=== PATIENT | male | born 1955 | race Caucasian/White ===

== ENCOUNTER 2024-06-21 08:28 | Emergency (ER) | payer BC, OTHER ==
--- NOTE | 2024-06-21 09:08 | RAD REPORT ---
EXAM: CT brain without contrast HISTORY: Left numbness COMPARISON: None TECHNIQUE: Multiple contiguous axial images were obtained and a CT of the brain without contrast. Sagittal and coronal reformats were performed. Automated exposure control, adjustment of the mA and/or kV according to patient size, and/or itera tive reconstruction. Unless otherwise specified, incidental findings do not require dedicated imaging follow-u FINDINGS: An intracranial bleed is not seen Ventricles are normal caliber No extra-axial fluid collection noted No significant hypodensity within the brain No fluid within the visualized sinuses or mastoids noted. IMPRESSION: No acute intracranial abnormality noted. If the patient's symptoms persist MRI of the brain would be recommended. from the emergency room was notified at 8:42 AM June 21, 2024
--- NOTE | 2024-06-21 09:12 | RAD REPORT ---
Procedure: Chest Single View HISTORY: Cough COMPARISON: none FINDINGS: The lungs appear clear of acute infiltrate. No significant pleural effusion noted. The heart is mildly enlarged. IMPRESSION: No acute abnormality is displayed.
[2024-06-21 09:14] LABS: Absolute Eosinophils 0.2 K/uL (0-0.5); Absolute Lymphocytes (CBC) 0.9 K/uL (0.7-4.9); Absolute Monocytes 0.6 K/uL (0.1-1.3); Absolute Neutrophil 6.5 K/uL (1.8-8.0); Basophils % 0.4 % (0-1.3); Eosinophils % 2.5 % (0-4.4); Hematocrit 44.9 % (39.6-49.0); Hemoglobin 14.7 g/dL (13.6-17.9); Lymphocytes % 11.2 % (15.3-44.8); MCH 27.6 pg (27.0-35.0); MCHC 32.7 g/dL (32.0-36.0); MCV 84.3 fL (80-100); MPV 8.5 fL (7.6-11.3); Monocytes % 7.6 % (3.3-12.3); Neutrophils % 78.3 % (41.7-73.7); Nucleated Red Blood Cells % 0.1 % (0-0); Platelets 174 thou/uL (152-406); RBC Red Blood Cell Count 5.33 M/uL (4.33-5.43); Red Cell Distribution Width 14.8 % (12.1-15.2)
[2024-06-21] MEDS ORDERED: ASPIRIN 81 MG CHEWABLE TABLET ONE (09:15)
--- NOTE | 2024-06-21 09:15 | RAD REPORT ---
EXAMINATION: Neck Angio CLINICAL INDICATION: Left numbness TECHNIQUE: Axial CT images were obtained from the aortic arch to the skull base after intravenous adm inistration of 100 cc Isovue-370 utilizing angiographic protocol. Multiplanar reformats, as well as 3D post-processing (maximum intensity projection images, volume rendered images and/or shaded surface rendered images) were generated and reviewed. One or more of the following dose reduction techniques were used: Automated exposure control, adjustment of the mA and/or kV according to patient size, and/or iterative reconstruction. Unless otherwise specified, incidental findings do not require dedicated imaging follow-up. COMPARISON: No prior exam. FINDINGS: The visualized aortic arch and great vessels do not demonstrate a significant abnormality Mild plaque within the common carotid, internal carotid and external carotid arteries bilaterally. Vertebral arteries unremarkable No significant stenosis noted. A dissection is not seen. Methods for NASCET criteria: Mild stenosis, 0% to 49%; Moderate stenosis 50% to 69%; Severe stenosis, 70% to 99% IMPRESSION: No acute vascular abnormality displayed
[2024-06-21] MEDS ORDERED: FAMOTIDINE 20 MG/2 ML VIAL IV ONE (09:16)
[2024-06-21] MEDS ORDERED: FOLIC ACID 5 MG/ML VIAL ONE (09:17)
[2024-06-21] MEDS ORDERED: NA CHLORIDE 0.9% 1,000 ML ONE (09:17)
--- NOTE | 2024-06-21 09:18 | RAD REPORT ---
EXAMINATION: CTA HEAD CLINICAL INDICATION: Left numbness TECHNIQUE: Axial CT images were obtained through the head after 100 cc Isovue-370 intravenous contras t utilizing angiographic protocol with 3D post-processing (maximum intensity projection images, volume rendered images and/or shaded surface rendered images). One or more of the following dose red uction techniques were used: Automated exposure control, adjustment of the mA and/or kV according to patient size, and/or iterative reconstruction. Unless otherwise specified, incidental findings do not require dedicated imaging follow-up. COMPARISON: None FINDINGS: Distal internal carotid, basilar, anterior cerebral, middle cerebral and posterior cerebral arteries do not demonstrate a significant stenosis An aneurysm not noted. No large vessel occlusion IMPRESSION: No acute vascular abnormality displayed
--- NOTE | 2024-06-21 09:31 | ER ---
Nurse's Notes [facility] Name: Brielle Ybarra Age: 68 yrs Sex: Male : 1955 Arrival Date: 06/21/2024 Time: 08:28 Bed 16 Private MD: Diagnosis: Cerebral infarction, unspecified-LEFT SIDED WEAKNESS, 21 HOURS AGO ONSET;Essential (primary) hypertension Presentation: 06/21 08:28 Chief complaint: EMS states: left arm weakness and numbness that progressed to his left kc6 leg started yesterday at 1230. pt reports having a sudden onset migraine at work and then his symptoms began. pt also reports multiple falls after symptoms onset. denies LOC. 08:28 Coronavirus screen: At this time, the client does not indicate any symptoms associated kc6 with coronavirus-19. Ebola Screen: No symptoms or risks identified at this time. Initial Sepsis Screen: Does the patient meet any 2 criteria? No. Patient's initial sepsis screen is negative. Does the patient have a suspected source of infection? No. Patient's initial sepsis screen is negative. Risk Assessment: Do you want to hurt yourself or someone else? Patient reports no desire to harm self or others. Onset of symptoms was June 20, 2024 at 12:30. Care prior to arrival: IV initiated. 18 GA, in the left antecubital area, Glucose check: 113. 08:28 Method Of Arrival: EMS: [facility] 08:28 Acuity: CORRINE 2 kc6 Historical: - Allergies: 08:52 No Known Allergies; kc6 - PMHx: 08:52 Hypertensive disorder; Hypercholesterolemia; kc6 - PSHx: 08:52 None; kc6 - Immunization history:: Adult Immunizations up to date. - Infectious Disease History:: Denies. - Social history:: Smoking status: Patient denies any tobacco usage or history of. - Family history:: not pertinent. Screenin:28 [facility] ED Fall Risk Assessment (Adult) History of falling in the last 3 months, kc6 including since admission Yes- fall prone (multiple falls) (3 pts) Confusion or Disorientation No (0 pts) Intoxicated or Sedated No (0 pts) Impaired Gait No (0 pts) Mobility Assist Device Used No (0 pt) Altered Elimination No (0 pt) Score/Fall Risk Level 3 or more points = High Risk Oriented to surroundings, Maintained a safe environment, Educated pt \T\ family on fall prevention, incl call for assistance when getting out of bed. Abuse screen: Denies threats or abuse. Denies injuries from another. Nutritional screening: No deficits noted. Tuberculosis screening: No symptoms or risk factors identified. 08:28 VAN Screening: Arm Drift: Minor drift. Visual Disturbance: No visual disturbance noted. kc6 Aphasia: Expressive aphasia noted. Provider notified of +VAN scoring. Neglect: No neglect noted. Antonia Swallow Protocol Brief Cognitive Screen What is your name? Normal, Where are you right now? Normal, What year is it? Normal. Oral Mechanism Examination Facial Symmetry: Normal, Motion: Normal, Lip Closure: Normal, Oral Mechanism Result: Normal. 3 oz Water Swallow Challenge: Pt able to drink all water without stopping, coughing, choking or throat clearing: Yes Result: PASS Notified: Louis Brock MD. Assessment: 08:28 General: Appears in no apparent distress. comfortable, well groomed, well developed, kc6 Behavior is calm, cooperative, appropriate for age. Pain: Denies pain. 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 Weakness in left arm(s) leg(s) Gait is unsteady, Speech is slurred, Facial droop on left, Facial symmetry: tongue is midline, Pupils are PERRLA, Numbness in face, left arm and left leg Reports headache. Cardiovascular: Reports chest pain, Denies shortness of breath, Capillary refill < 3 seconds Rhythm is sinus rhythm. Respiratory: Airway is patent Trachea midline Respiratory effort is even, unlabored, Respiratory pattern is regular, symmetrical. GI: No signs and/or symptoms were reported involving the gastrointestinal system. : No signs and/or symptoms were reported regarding the genitourinary system. EENT: No signs and/or symptoms were reported regarding the EENT system. Derm: No signs and/or symptoms reported regarding the dermatologic system. Skin is intact, is healthy with good turgor, Skin is pink, warm \T\ dry. Musculoskeletal: No signs and/or symptoms reported regarding the musculoskeletal system. Capillary refill < 3 seconds, Range of motion: intact in all extremities. 09:28 Reassessment: Patient appears in no apparent distress at this time. No changes from [facility] previously documented assessment. Patient and/or family updated on plan of care and expected duration. Pain level reassessed. Patient is alert, oriented x 3, equal unlabored respirations, skin warm/dry/pink. 10:28 Reassessment: Patient appears in no apparent distress at this time. No changes from [facility] previously documented assessment. Patient and/or family updated on plan of care and expected duration. Pain level reassessed. Patient is alert, oriented x 3, equal unlabored respirations, skin warm/dry/pink. 11:14 Reassessment: Patient appears in no apparent distress at this time. No changes from 6 previously documented assessment. Patient and/or family updated on plan of care and expected duration. Pain level reassessed. Patient is alert, oriented x 3, equal unlabored respirations, skin warm/dry/pink. Vital Signs: 08:28 BP 231 / 98; Pulse 50; Resp 18 S; Pulse Ox 98% on R/A; Weight 105.69 kg (M); Height 6 [facility] ft. 0 in. (R); Pain 0/10; 09:01 BP 208 / 80; kc6 10:33 BP 202 / 91; Pulse 53; Resp 16 S; Pulse Ox 98% on R/A; 6 08:28 Body Mass Index 31.60 (105.69 kg, 182.88 cm) [facility] 08:28 Pain Scale: Adult [facility] NIH Stroke Scale Scores: 08:28 NIHSS Score: 11 [facility] 09:53 NIHSS Score: 10 [facility] ED Course: 08:28 Arm band placed on. [facility] 08:28 Patient has correct armband on for positive identification. Bed in low position. Call [facility] light in reach. Side rails up X2. Adult w/ patient. night monitor on. Pulse ox on. NIBP on. Door closed. Noise minimized. Lights dimmed. Warm blanket given. Pillow given. 08:28 Maintain EMS IV. Dressing intact. Good blood return noted. Site clean \T\ dry. Gauge \T\ rey 6 site: 18G LAC. Flushed with 10 mL NS. Patient maintains SpO2 saturation greater than 95% on room air. 08:29 Patient arrived in ED. eb 08:29 Louis Brock MD is Attending Physician. shelby 08:49 Melvin, Nette, RN is Primary Nurse. kc6 08:52 Triage completed. kc6 08:57 XRAY Chest (1 view) In Process Unspecified. EDMS 09:04 CT Stroke Brain w/o Contrast In Process Unspecified. EDMS 09:11 CT Head Angio In Process Unspecified. EDMS 09:12 CT Neck Angio In Process Unspecified. EDMS 09:43 initiated a transfer with Kinsey from the [facility] center. eb 09:[address] Zavala the neuro deputy probation officer for [facility] with Dr. Brock for patient eb transfer consultation. 09:57 connected the hospitalist deputy probation officer for [facility] with Dr. Brock for patient eb transfer consultation. 10:14 connected the emergency room doctor deputy probation officer for [facility] with Dr. Brock for eb patient transfer consultation. 10:15 Administrative approval given by Kinsey Pinedo/ patient has been accepted to [facility] ED/ Dr. Amrit Francisco has accepted the patient in transfer/ report to be called to [phone]. 11:15 No provider procedures requiring assistance completed. Patient transferred, IV remains kc6 in place. Administered Medications: 09:23 Drug: NS 0.9% IV 1000 ml IV at 1 bolus Per protocol; to be given as a bolus over 60 kc6 minutes Route: IV; Rate: 1 bolus; Site: left antecubital; 11:14 Follow up: Response: No adverse reaction; IV Status: Infusion continued upon transfer; kc6 IV Intake: 1000ml 09:23 Drug: foLIC Acid IVPB 1 mg IVPB once Route: IVPB; Site: left antecubital; kc6 10:37 Follow up: Response: No adverse reaction; IV Status: Completed infusion; IV Intake: kc6 0.2ml 09:23 Drug: Famotidine IVP 20 mg IVP once; dilute with 10 mL 0.9% NaCl; give over 2 minutes kc6 Route: IVP; Site: left antecubital; 10:37 Follow up: Response: No adverse reaction kc6 09:23 Drug: Aspirin PO Chewable Tablet 324 mg PO once; 81 mg tablets x 4 Route: PO; kc6 10:37 Follow up: Response: No adverse reaction kc6 10:25 Drug: Clopidogrel PO 75 mg PO once Route: PO; kc6 10:37 Follow up: Response: No adverse reaction kc6 10:25 Drug: Atorvastatin PO 40 mg PO once Route: PO; kc6 10:38 Follow up: Response: No adverse reaction kc6 Medication: 11:15 VIS not applicable for this client. kc6 Intake: 10:37 IV: 0ml; Total: 0ml. kc6 11:14 IV: 1000ml; Total: 1000ml. kc6 Outcome: 09:30 ER care complete, transfer ordered by MD. ryan 11:15 Transferred by [facility]. to [facility], [facility], Transfer form kc6 completed. 11:15 Condition: stable 11:15 Instructed on the need for transfer, 11:15 Patient left the ED. kc6 NIH Stroke Scale - NIH Stroke Score Date: 06/21/2024 Time: 08:28 Total Score = 11 10. Dysarthria (speech clarity - read or repeat words) - 1(Mild to Moderate) 11. Extinction and Inattention (visual/tactile/auditory/spatial/personal) - 1(Present) 1a. Level of Consciousness (LOC) - 0(Alert) 1b. Level of Consciousness (LOC) (Month \T\ Age) - 0(Both) 1c. LOC Commands (Open \T\ Closes Eyes/Dope Heater) - 0(Both) 2. Best Gaze (Lateral Gaze Paresis) - 0(Normal) 3. Visual Field Loss - 0(No visual loss) 4. Facial Palsy - 1(Minor Paralysis) 5a. Left Arm: Motor (10-second hold) - 2(Drift, some effort against gravity) 5b. Right Arm: Motor (10-second hold) - 0(No drift) 6a. Left Leg: Motor (5-second hold - always test supine) - 2(Drift, some effort against gravity) 6b. Right Leg: Motor (5-second hold - always test supine) - 0(No drift) 7. Limb Ataxia (finger/nose \T\ heel/abraham - test with eyes open) - 2(Present in two limbs) 8. Sensory Loss (pinprick arms/legs/face) - 1(Mild to moderate loss) 9. Best Language: Aphasia (description/naming/reading) - 1(Mild to moderate aphasia) Initials: kc6 NIH Stroke Scale - NIH Stroke Score Date: 06/21/2024 Time: 09:53 Total Score = 10 10. Dysarthria (speech clarity - read or repeat words) - 1(Mild to Moderate) 11. Extinction and Inattention (visual/tactile/auditory/spatial/personal) - 0(No abnormality) 1a. Level of Consciousness (LOC) - 0(Alert) 1b. Level of Consciousness (LOC) (Month \T\ Age) - 0(Both) 1c. LOC Commands (Open \T\ Closes Eyes/Dope Heater) - 0(Both) 2. Best Gaze (Lateral Gaze Paresis) - 0(Normal) 3. Visual Field Loss - 0(No visual loss) 4. Facial Palsy - 2(Partial paralysis) 5a. Left Arm: Motor (10-second hold) - 2(Drift, some effort against gravity) 5b. Right Arm: Motor (10-second hold) - 0(No drift) 6a. Left Leg: Motor (5-second hold - always test supine) - 1(Drift) 6b. Right Leg: Motor (5-second hold - always test supine) - 0(No drift) 7. Limb Ataxia (finger/nose \T\ heel/abraham - test with eyes open) - 2(Present in two limbs) 8. Sensory Loss (pinprick arms/legs/face) - 1(Mild to moderate loss) 9. Best Language: Aphasia (description/naming/reading) - 1(Mild to moderate aphasia) Initials: shelby Signatures: Dispatcher [employer] Louis Bell MD MD cha Botello, Elizabeth eb Campbell, Kaitlyn RN RN kc6
--- NOTE | 2024-06-21 09:31 | EDPHYS ---
Physician Documentation [facility] Name: Brielle Ybarra Age: 68 yrs Sex: Male : 1955 Arrival Date: 06/21/2024 Time: 08:28 Bed 16 Private MD: ED Physician Louis Brock HPI: 06/21 09:23 This 68 yrs old Male presents to ER via EMS with complaints of S/S of shelby Possible Stroke. 09:23 The patient's problem is reported as weakness, in the left upper extremity, in the left shelby lower extremity, in the left side of face. Onset: The symptoms/episode began/occurred 1 day(s) ago, at 12:00. Duration: The episode is continuous. Context: the episode(s) was witnessed, by no one. The symptoms are alleviated by nothing. The symptoms are aggravated by standing, walking. Associated signs and symptoms: The patient has no apparent associated signs or symptoms. Severity of symptoms: At their worst the symptoms were moderate in the emergency department the symptoms are unchanged. Patient's baseline: Neuro: alert and fully oriented. The patient has not experienced similar symptoms in the past. Historical: - Allergies: 08:52 No Known Allergies; kc6 - PMHx: 08:52 Hypertensive disorder; Hypercholesterolemia; kc6 - PSHx: 08:52 None; kc6 - Immunization history:: Adult Immunizations up to date. - Infectious Disease History:: Denies. - Social history:: Smoking status: Patient denies any tobacco usage or history of. - Family history:: not pertinent. ROS: 09:23 Constitutional: Negative for fever, chills, and weight loss, Eyes: Negative for injury, shelby pain, redness, and discharge, ENT: Negative for injury, pain, and discharge, Neck: Negative for injury, pain, and swelling, Cardiovascular: Negative for chest pain, palpitations, and edema, Respiratory: Negative for shortness of breath, cough, wheezing, and pleuritic chest pain, Abdomen/GI: Negative for abdominal pain, nausea, vomiting, diarrhea, and constipation, Back: Negative for injury and pain, : Negative for injury, bleeding, discharge, and swelling, MS/Extremity: Negative for injury and deformity, Skin: Negative for injury, rash, and discoloration, Psych: Negative for depression, anxiety, suicide ideation, homicidal ideation, and hallucinations, Allergy/Immunology: Negative for hives, rash, and allergies, Endocrine: Negative for neck swelling, polydipsia, polyuria, polyphagia, and marked weight changes, Hematologic/Lymphatic: Negative for swollen nodes, abnormal bleeding, and unusual bruising, : Neuro: Positive for weakness, of the top of head, forehead, left ear, left cheek, left scientologist, left jaw, left arm and left leg, Exam: : Radiologist reports: NEG shelby : Constitutional: This is a well developed, well nourished patient who is awake, alert, and in no acute distress. Head/Face: Normocephalic, atraumatic. Eyes: Pupils equal round and reactive to light, extra-ocular motions intact. Lids and lashes normal. Conjunctiva and sclera are non-icteric and not injected. Cornea within normal limits. Periorbital areas with no swelling, redness, or edema. ENT: Nares patent. No nasal discharge, no septal abnormalities noted. Tympanic membranes are normal and external auditory canals are clear. Oropharynx with no redness, swelling, or masses, exudates, or evidence of obstruction, uvula midline. Mucous membranes moist. Neck: Trachea midline, no thyromegaly or masses palpated, and no cervical lymphadenopathy. Supple, full range of motion without nuchal rigidity, or vertebral point tenderness. No Meningismus. Chest/axilla: Normal chest wall appearance and motion. Nontender with no deformity. No lesions are appreciated. Cardiovascular: Regular rate and rhythm with a normal S1 and S2. No gallops, murmurs, or rubs. Normal PMI, no JVD. No pulse deficits. Respiratory: Lungs have equal breath sounds bilaterally, clear to auscultation and percussion. No rales, rhonchi or wheezes noted. No increased work of breathing, no retractions or nasal flaring. Abdomen/GI: Soft, non-tender, with normal bowel sounds. No distension or tympany. No guarding or rebound. No evidence of tenderness throughout. Back: No spinal tenderness. No costovertebral tenderness. Full range of motion. Male : Normal genitalia with no discharge or lesions. Skin: Warm, dry with normal turgor. Normal color with no rashes, no lesions, and no evidence of cellulitis. MS/ Extremity: Pulses equal, no cyanosis. Neurovascular intact. Full, normal range of motion., bilateral aka Psych: Awake, alert, with orientation to person, place and time. Behavior, mood, and affect are within normal limits. 09:23 Neuro: Orientation: is normal, Mentation: is normal, Memory: is normal, appropriate for stated age, no acute changes, Cranial nerves: facial droop noted on left, with forehead involved. Cerebellar function: is grossly normal, Motor: is normal, Sensation: is normal, Gait: not tested. Babinski testing is not performed, seizure activity, is not displayed by the patient, 09:30 ECG was reviewed by the Attending Physician. [facility] Vital Signs: 08:28 BP 231 / 98; Pulse 50; Resp 18 S; Pulse Ox 98% on R/A; Weight 105.69 kg (M); Height 6 kc6 ft. 0 in. (R); Pain 0/10; 09:01 BP 208 / 80; kc6 10:33 BP 202 / 91; Pulse 53; Resp 16 S; Pulse Ox 98% on R/A; 6 08:28 Body Mass Index 31.60 (105.69 kg, 182.88 cm) [facility] 08:28 Pain Scale: Adult [facility] NIH Stroke Scale Scores: 08:28 NIHSS Score: 11 [facility] 09:53 NIHSS Score: 10 [facility] MDM: 08:29 Medical Screening Exam initiated shelby 09:27 TNKase (Tenecteplase) Screening: Contraindications: Other: BEGAN NOON YESTERDAY. Data [facility] reviewed: vital signs, nurses notes, EMS record, lab test result(s), EKG, radiologic studies, CT scan, plain films. Consideration of Admission/Observation Escalation of care including admission/observation considered. Test considered but Not performed: MRI: NO MRI. 06/21 08:32 Order name: Basic Metabolic Panel; Complete Time: 09:56 [facility] 06/21 08:32 Order name: CBC with Diff; Complete Time: 09:56 [facility] 06/21 08:32 Order name: LFT's; Complete Time: 09:56 [facility] 06/21 08:32 Order name: Magnesium; Complete Time: 09:56 [facility] 06/21 08:32 Order name: NT PRO-BNP; Complete Time: 09:56 [facility] 06/21 08:32 Order name: PT-INR; Complete Time: 09:56 [facility] 06/21 08:32 Order name: Troponin HS; Complete Time: 09:56 [facility] 06/21 08:32 Order name: Lipase; Complete Time: 09:56 [facility] 06/21 08:32 Order name: CRP; Complete Time: 09:56 [facility] 06/21 08:32 Order name: Urinalysis w/ reflexes 06/21 08:32 Order name: CPK; Complete Time: 09:56 [facility] 06/21 08:32 Order name: XRAY Chest (1 view); Complete Time: 09:56 [facility] 06/21 08:32 Order name: CT Stroke Brain w/o Contrast; Complete Time: 09:56 [facility] 06/21 08:32 Order name: CT Head Angio; Complete Time: 09:56 [facility] 06/21 08:32 Order name: CT Neck Angio; Complete Time: 09:56 [facility] 06/21 08:32 Order name: Cardiac monitoring; Complete Time: 09: [facility] 06/21 08:32 Order name: EKG - Nurse/Tech; Complete Time: 09: [facility] 06/21 08:32 Order name: IV Saline Lock; Complete Time: 09: [facility] 06/21 08:32 Order name: Labs collected and sent; Complete Time: 09: [facility] 06/21 08:32 Order name: O2 Per Protocol; Complete Time: 09: [facility] 06/21 08:32 Order name: O2 Sat Monitoring; Complete Time: 09: [facility] EC:30 Rate is 53 beats/min. Rhythm is regular. QRS [place] is Normal. WA interval is prolonged shelby at 272 msec. QRS interval is normal. QT interval is normal. No Q waves. T waves are Normal. No ST changes noted. Clinical impression: 1st degree heart block, Sinus bradycardia, and No evidence of ischemia. Interpreted by me. Reviewed by me. Administered Medications: 09:23 Drug: NS 0.9% IV 1000 ml IV at 1 bolus Per protocol; to be given as a bolus over 60 kc6 minutes Route: IV; Rate: 1 bolus; Site: left antecubital; 11:14 Follow up: Response: No adverse reaction; IV Status: Infusion continued upon transfer; kc6 IV Intake: 1000ml 09:23 Drug: foLIC Acid IVPB 1 mg IVPB once Route: IVPB; Site: left antecubital; kc6 10:37 Follow up: Response: No adverse reaction; IV Status: Completed infusion; IV Intake: kc6 0.2ml 09:23 Drug: Famotidine IVP 20 mg IVP once; dilute with 10 mL 0.9% NaCl; give over 2 minutes kc6 Route: IVP; Site: left antecubital; 10:37 Follow up: Response: No adverse reaction kc6 09:23 Drug: Aspirin PO Chewable Tablet 324 mg PO once; 81 mg tablets x 4 Route: PO; kc6 10:37 Follow up: Response: No adverse reaction kc6 10:25 Drug: Clopidogrel PO 75 mg PO once Route: PO; kc6 10:37 Follow up: Response: No adverse reaction kc6 10:25 Drug: Atorvastatin PO 40 mg PO once Route: PO; kc6 10:38 Follow up: Response: No adverse reaction kc6 Disposition Summary: 06/21/24 09:30 Transfer Ordered Notes: Transfer Location: [facility] shelby Reason: Higher level of care shelby Condition: Serious shelby Problem: new shelby Symptoms: are unchanged shelby Accepting Physician: TO [facility], ZEFERINO MARIANO(06/21/24 11:15) kc6 Diagnosis - Cerebral infarction, unspecified - LEFT SIDED WEAKNESS, 21 HOURS AGO ONSET shelby - Essential (primary) hypertension shelby Forms: - Medication Reconciliation Form shelby - SBAR form shelby Critical care time excluding procedures: 09:57 Critical care time: Bedside Care: 25 minutes, Consultation: 10 minutes, Family shelby Intervention: 5 minutes. Total time: 40 minutes NIH Stroke Scale - NIH Stroke Score Date: 06/21/2024 Time: 08:28 Total Score = 11 10. Dysarthria (speech clarity - read or repeat words) - 1(Mild to Moderate) 11. Extinction and Inattention (visual/tactile/auditory/spatial/personal) - 1(Present) 1a. Level of Consciousness (LOC) - 0(Alert) 1b. Level of Consciousness (LOC) (Month \T\ Age) - 0(Both) 1c. LOC Commands (Open \T\ Closes Eyes/Tram Inspector) - 0(Both) 2. Best Gaze (Lateral Gaze Paresis) - 0(Normal) 3. Visual Field Loss - 0(No visual loss) 4. Facial Palsy - 1(Minor Paralysis) 5a. Left Arm: Motor (10-second hold) - 2(Drift, some effort against gravity) 5b. Right Arm: Motor (10-second hold) - 0(No drift) 6a. Left Leg: Motor (5-second hold - always test supine) - 2(Drift, some effort against gravity) 6b. Right Leg: Motor (5-second hold - always test supine) - 0(No drift) 7. Limb Ataxia (finger/nose \T\ heel/abraham - test with eyes open) - 2(Present in two limbs) 8. Sensory Loss (pinprick arms/legs/face) - 1(Mild to moderate loss) 9. Best Language: Aphasia (description/naming/reading) - 1(Mild to moderate aphasia) Initials: kc6 NIH Stroke Scale - NIH Stroke Score Date: 06/21/2024 Time: 09:53 Total Score = 10 10. Dysarthria (speech clarity - read or repeat words) - 1(Mild to Moderate) 11. Extinction and Inattention (visual/tactile/auditory/spatial/personal) - 0(No abnormality) 1a. Level of Consciousness (LOC) - 0(Alert) 1b. Level of Consciousness (LOC) (Month \T\ Age) - 0(Both) 1c. LOC Commands (Open \T\ Closes Eyes/Tram Inspector) - 0(Both) 2. Best Gaze (Lateral Gaze Paresis) - 0(Normal) 3. Visual Field Loss - 0(No visual loss) 4. Facial Palsy - 2(Partial paralysis) 5a. Left Arm: Motor (10-second hold) - 2(Drift, some effort against gravity) 5b. Right Arm: Motor (10-second hold) - 0(No drift) 6a. Left Leg: Motor (5-second hold - always test supine) - 1(Drift) 6b. Right Leg: Motor (5-second hold - always test supine) - 0(No drift) 7. Limb Ataxia (finger/nose \T\ heel/abraham - test with eyes open) - 2(Present in two limbs) 8. Sensory Loss (pinprick arms/legs/face) - 1(Mild to moderate loss) 9. Best Language: Aphasia (description/naming/reading) - 1(Mild to moderate aphasia) Initials: shelby Signatures: Dispatcher [employer] EDLouis Lima MD MD cha Campbell, Kaitlyn RN RN kc6 Corrections: (The following items were deleted from the chart) 08:33 08:33 BASIC METABOLIC PANEL+C.LAB.BRZ ordered. EDMS EDMS 08:33 08:33 CBC+H.LAB.BRZ ordered. EDMS EDMS 08:33 08:33 HEPATIC FUNCTION+C.LAB.BRZ ordered. EDMS EDMS 08:33 08:33 MAGNESIUM+C.LAB.BRZ ordered. EDMS EDMS 08:33 08:33 PROBNP+C.LAB.BRZ ordered. EDMS EDMS 08:33 08:33 PROTIME (+INR)+COAG.LAB.BRZ ordered. EDMS EDMS 08:33 08:33 Troponin High Sensitivity+C.LAB.BRZ ordered. EDMS EDMS 08:33 08:33 LIPASE+C.LAB.BRZ ordered. EDMS EDMS 08:33 08:33 C-REACTIVE PROTEIN+C.LAB.BRZ ordered. EDMS EDMS 08:33 08:33 Urinalysis+U.LAB.BRZ ordered. EDMS EDMS 08:33 08:33 Chest Single View+RAD.RAD.BRZ ordered. EDMS EDMS 08:33 08:33 CT-STROKE BRAIN W/O CONTRAST+CT.RAD.BRZ ordered. EDMS EDMS 08:33 08:33 Head Angio+CT.RAD.BRZ ordered. EDMS EDMS 08:33 08:33 Neck Angio+CT.RAD.BRZ ordered. EDMS EDMS 08:33 08:33 CREATINE PHOSPHOKINASE+C.LAB.BRZ ordered. EDMS EDMS 10:00 09:30 TO [facility], PER MONTSERRAT ryan shelby 11:15 10:00 TO [facility], PER MONTSERRAT ryan kc6
[2024-06-21 09:34] LABS: ALT/SGPT 23 U/L (16-61); AST/SGOT 14 U/L (15-37); Albumin 3.1 g/dL (3.4-5.0); Albumin/Globulin Ratio 0.9 (1.1-1.8); Alkaline Phosphatase 86 U/L (45-117); Anion Gap 8.3 mEq/L (5.0-15.0); BUN Blood Urea Nitrogen 14 mg/dL (7-18); Bicarbonate 27 mEq/L (21-32); Bilirubin Total 0.4 mg/dL (0.2-1.0); C-Reactive Protein 7.61 mg/L (<3.00); Creatine Phosphokinase 112 U/L (39-308); Globulin 3.3 g/dL (2.3-3.5); Glomerular Filtration Rate 89 ml/min (=/>90); Glucose Level 119 mg/dL (74-106); Lipase 23 U/L (13-75); Magnesium 2.1 mg/dL (1.6-2.4); NT PRO-BNP 526 pg/mL (<125); Potassium 4.3 mEq/L (3.5-5.1); Protein, Total 6.4 g/dL (6.4-8.2); Sodium Level 138 mEq/L (136-145); Troponin High Sensitivity 29.2 pg/mL (<58.9)
[2024-06-21 09:37] LABS: Bilirubin Direct < 0.2 mg/dL (0-0.2); Bilirubin Indirect, Calculated 0.2 mg/dL (0.2-0.8)
[2024-06-21 09:43] LABS: PT Prothrombin Time 12.1 SECONDS (9.4-12.5); Protime INR 1.08
[2024-06-21] MEDS ORDERED: CLOPIDOGREL 75 MG TABLET ONE (10:07)
[2024-06-21] MEDS ORDERED: ATORVASTATIN 40 MG TAB ONE (10:07)
[2024-06-21 10:44] LABS: Specific Gravity > 1.030 (1.005-1.030); Sqamous Epithelial <5 /HPF (None Seen); Urine Bacteria None Seen /HPF (<20); Urine Bilirubin NEGATIVE (Negative); Urine Blood Negative (Negative); Urine Clarity Clear (Clear); Urine Color Colorless (Yellow); Urine Culture Reflex Order NOT NEEDED; Urine Glucose NEGATIVE (Negative); Urine Ketones NEGATIVE (Negative); Urine Microscopic Reflex YN ORDER UMIC; Urine Nitrite NEGATIVE (Negative); Urine Protein TRACE (Negative); Urine RBC <5 /HPF (None Seen); Urine Urobilinogen Normal (Normal); Urine WBC <5 /HPF (<5); Urine pH 7.5 (5.0-7.0)
[2024-06-21 11:24] VITALS: O2SAT 98
[2024-06-21 11:34] VITALS: BP 202/91
--- NOTE | 2024-06-29 11:14 | EKG ---
Test Date: 2024-06-21 Test Time: 08:57:21 Farm Rancher: RICKIE MEASUREMENT RESULTS: Intervals: Rate: 53 OR: 272 QRSD: 148 QT: 490 QTc: 459 [place]: P: 90 OR: 272 QRS: 18 T: 69 INTERPRETIVE STATEMENTS: Sinus bradycardia with 1st degree AV block with premature atrial complexes in a pattern of bigeminy Right bundle branch block Abnormal ECG No previous ECG available for comparison Electronically Signed On 06-29-24 11:02:09 TEEN COUNSELOR by Kosta Andersen
== END 2024-06-21 11:15 | disposition short-term general hospital (02) ==
LOC: ER 08:28 → EDBD 08:28 → ER 11:15
DX: I63.9 Cerebral infarction, unspecified (principal); I10 Essential (primary) hypertension; R29.711 NIHSS score 11
CPT/HCPCS: 96365; 96361; 93005; 85025; 81001; 80048; 36415; 83735; 82550; 85610; 80076; 84484; 83690; 83880; 86140; 70496; 70498; 70450; 71045; 96375; 99285; Q9967; J7030

== ENCOUNTER 2024-06-30 15:09 | Inpatient (IN) | payer BC, OTHER ==
[2024-06-30] MEDS ORDERED: ACETAMINOPHEN 500 MG TAB PO PRN (21:37)
[2024-06-30] MEDS ORDERED: BISACODYL E.C. 5 MG TAB PO PRN (21:39)
[2024-06-30] MEDS ORDERED: CARBOXYMETHYLCELLULOSE SODIUM 0.5% 15 ML OPTH PRN (21:40)
[2024-06-30] MEDS ORDERED: BISACODYL 10 MG RECTAL SUPP PR PRN (21:40)
[2024-06-30] MEDS ORDERED: MELATONIN 3 MG TABLET PO PRN (21:42)
[2024-06-30] MEDS ORDERED: DOCUSATE NA/SENNA CONC 1 TAB PO PRN (21:42)
[2024-06-30] MEDS ORDERED: SOD CHLORIDE 0.65% NASAL SPRAY NAS PRN (21:43)
[2024-06-30] MEDS ORDERED: TETRAHYDROZOLINE HCL 150 DROPS/15 ML BTL OPTH PRN (21:44)
[2024-06-30] MEDS: HYDRALAZINE HCL 25 MG TABLET PO SCH (22:07)
[2024-06-30] MEDS: ATORVASTATIN 40 MG TAB PO SCH (22:07)
[2024-07-01 01:22] LABS: Specific Gravity 1.009 (1.005-1.030); Sqamous Epithelial <5 /HPF (None Seen); Urine Bacteria None Seen /HPF (<20); Urine Bilirubin NEGATIVE (Negative); Urine Blood Negative (Negative); Urine Clarity Clear (Clear); Urine Color Light-Yellow (Yellow); Urine Culture Reflex Order NOT NEEDED; Urine Glucose NEGATIVE (Negative); Urine Ketones NEGATIVE (Negative); Urine Micro Reflex YN NO BILL MICROSCOPIC; Urine Nitrite NEGATIVE (Negative); Urine Protein NEGATIVE (Negative); Urine RBC <5 /HPF (None Seen); Urine Urobilinogen Normal (Normal); Urine WBC <5 /HPF (<5); Urine pH 5.5 (5.0-7.0)
[2024-07-01 05:29] LABS: Absolute Basophils 0.1 K/uL (0-0.5); Absolute Eosinophils 0.3 K/uL (0-0.5); Absolute Lymphocytes (CBC) 1.3 K/uL (0.7-4.9); Absolute Monocytes 1.1 K/uL (0.1-1.3); Absolute Neutrophil 6.9 K/uL (1.8-8.0); Basophils % 0.7 % (0-1.3); Eosinophils % 3.1 % (0-4.4); Hematocrit 41.2 % (39.6-49.0); Hemoglobin 13.6 g/dL (13.6-17.9); Lymphocytes % 13.4 % (15.3-44.8); MCH 27.9 pg (27.0-35.0); MCHC 32.9 g/dL (32.0-36.0); MCV 84.8 fL (80-100); MPV 8.7 fL (7.6-11.3); Monocytes % 11.1 % (3.3-12.3); Neutrophils % 71.7 % (41.7-73.7); Platelets 209 thou/uL (152-406); RBC Red Blood Cell Count 4.86 M/uL (4.33-5.43); Red Cell Distribution Width 15.2 % (12.1-15.2)
[2024-07-01 05:45] LABS: Albumin 2.8 g/dL (3.4-5.0); Anion Gap 6.1 mEq/L (5.0-15.0); Magnesium 2.3 mg/dL (1.6-2.4); Potassium 4.1 mEq/L (3.5-5.1); Prealbumin 14.4 mg/dL (20-40)
[2024-07-01] MEDS ORDERED: APIXABAN 2.5 MG TABLET PO SCH (08:00)
[2024-07-01] MEDS: APIXABAN 2.5 MG TABLET PO SCH (08:17)
[2024-07-01] MEDS: ASPIRIN EC 81 MG TAB PO SCH (08:17)
[2024-07-01] MEDS: DOXAZOSIN 2 MG TAB PO SCH (08:17)
[2024-07-01] MEDS: AMLODIPINE 10 MG TAB PO SCH (11:21)
[2024-07-01] MEDS: MAGNESIUM OXIDE 400 MG TAB PO SCH (19:17)
[2024-07-01] MEDS ORDERED: ATORVASTATIN 40 MG TAB PO SCH (21:00)
--- NOTE | 2024-07-02 04:49 | HP ---
Date of Admission: 06/30/2024 Time Of Service: 1 p.m. Chief Complaint: "I had a stroke. My left side, dominant side, is weak and I need to get stronger." History Of Present Illness: Mr. Ybarra is a 68-year-old patient who has hypertension and dyslipidemia , was not on medications, but taking small aspirin 81 mg daily. 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 He fell because of the weakness, but had no injury. He did not immediately seek medical attention. Then, the following day on the , he was in [facility] Emergency Department, where he was outside the window of tPA. His CT angiogram of the head showed no large vessel occlusion and he was now transferred out. He received dual antiplatelet therapy, aspirin, Plavix, statin, folic acid. His EKG shows sinus bradycardia. His blood pressure was systolic over 200, high. He was accepted to telemetry unit, however, because no room was available. He was sent to [facility] directly. There he was found to be hypertensive, systolic blood pressure 230, bradycardic wit h heart rate in the 40s, although he is asymptomatic with second-degree AV block. He was sent to the coronary care unit, followed by Neurology consultation, placed on Cardene drip. His echocardiogram showed ejection fraction 65%. He had diastolic dysfunction. Right ventricular function was normal. He had negative PFO findings. He had mildly increased wall thickness with concentric remodeling of the right left ventricle. He began on oral blood pressure medication regimen. Subsequent brain MRI showed a right pontine infarct. At that point, he was evaluated by therapy service, Physical, Occupa tional, and Speech Therapy and found to have severely low functioning, below his baseline and was tra nsferred to regular floor on the where he still required intermittent Cardene use to address his blood pressure and asymptomatic sinus pauses. It was recommended that he hold calcium channel blocke r and beta-dalton to monitor blood pressure and have hydralazine titrated to control it. Cardio was also added and Cardene weaned off on the . He was found to require significant assistance for tr shira, minimum assistance covering 25 feet with a rolling walker, contact guard assistance for sit t o stand and perform activities of daily living. Prior to the patient's stroke, he was independent wi th all activities of daily living. He did not require any assistive device to mobilize. 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 Past Medical History: Hypertension, dyslipidemia. He was not originally treated and now stroke. Allergies: NO KNOWN DRUG ALLERGIES. Imaging: Chest CT scan on 06/22 shows mild pulmonary vascular congestion. No focal consolidation. No significant pleural effusion or pneumothorax. Cardiac silhouette unchanged. Brain CT scan withou t contrast on 06/21, no acute intracranial abnormalities. Brain MRI on 06/23, acute infarct in the r ight angela without hemorrhagic conversion. Current Medications: Tylenol 1000 mg every 8 hours as needed, Norvasc 10 mg daily, Eliquis 2.5 mg da sky, Artificial Tears 1 drop 4 times daily as needed for dry eyes, aspirin 81 mg daily, Lipitor 40 mg at bedtime, Dulcolax 10 per rectum as needed for constipation. He has Cardura 1 mg daily; Apresolin e 100 mg 3 times daily; lidocaine patch apply topically to left shoulder where he does have some mild spasm in the left shoulder where he was on the weak side; melatonin 3 mg at bedtime; magnesium oxide 400 mg twice daily; Senokot-S 2 at bedtime; sodium chloride nasal spray, 2 sprays every 2 hours as n eeded; Visine ophthalmic 1 drop in each eye 4 times daily as needed. Family History: Noncontributory. Laboratory Studies: Complete blood count with differential is completely normal. White blood cell c ount 9.7, hemoglobin 13.6, platelets 209. His prealbumin is 14.4, albumin 2.8, magnesium 2.3, calciu m 8.7, glucose 103, creatinine 0.83, BUN 18, carbon dioxide 27, chloride 109, potassium 4.1, sodium 1 38. Urinalysis is completely normal. Social History: No alcohol, tobacco, or IV drug use. Patient lives in single family home with his s on. No new or other complaints. Review of Systems: He notes some pain in his left shoulder, which is the weak side. There is some mild spasming in the left upper and lower extremity. No difficulty with speech, swallowing. His mood is good. Denies an y depression. Denies any constipation and any other positives on the systems review. Current Level Of Functioning: Currently, he is independent for eating and grooming, moderate assista nce for bathing, supervision for upper body dressing, moderate assistance for lower body dressing and toileting and wheelchair transfer and toilet transfer. Ambulation 35 feet, moderate assistance requ ired. Physical Examination: Vital Signs: Blood pressure 140/63, pulse 66, respiratory rate of 16, temperature 97.7, oxygen satur ation 94%. General: Mr. Ybarra is sitting in a chair beside the bed. HEENT: He appears normocephalic, atraumatic. Sclerae anicteric. Oropharynx pink and moist. Neck: Supple. Chest: Clear. Heart: Regular. Extremities: Show no significant edema, cyanosis, or clubbing. NEUROLOGIC: In terms of his cranial nerves, no significant appreciation of nasolabial fold decrease on the left, perhaps very subtle. Good excursions and smiling. Sensation intact to touch in the lef t and right face. Motor examination in the left upper extremity around 3 distally to around 2 to 3 p roximally and distally in the left upper extremity. Left lower extremity around 3 to 4 proximally an d distally. Right side fully strong at 5/5 proximally and distally. Sensation decreased in the left upper and lower compared to right side. Coordination intact in upper and lower extremity. He is be ing ambulated by physical therapist. Rehab And Medical Assessment And Plan: Brielle is a 68-year-old patient admitted to rehabilitation [facility] with impairment category 01 stroke. His impairment group code is 01.1, left body involvement, rig ht brain. Etiologic diagnosis, right pontine infarct without hemorrhagic conversion. Comorbidities are dyslipidemia, hypertension, left shoulder pain, left upper and lower extremity weakness with some mild spasming. Plan: 1.He will have physical and occupational therapy. He was evaluated and cleared by Speech Therapy. No swallowing issues. No cognitive issues. The physical therapy and occupational therapy will be 3 hours a day, 5 of 7 days. 2.Dry eyes. He has ophthalmic drops. He has saline nasal spray for congestion, Senokot for constip ation, melatonin for insomnia, magnesium oxide for muscle spasms, Apresoline and Cardura along with N orvasc for blood pressure control. He has lidocaine patch again to left shoulder for pain, Lipitor f or dyslipidemia, aspirin for stroke risk reduction, Eliquis for DVT prophylaxis, and Tylenol for pain . Comorbidities That Are Impacting Rehabilitation: The left shoulder pain is mild to moderate. Lidoca ine patch will be applied. He does have the magnesium added. If need be, a muscle relaxant will be added and shoulder brace to help keep the shoulder from dropping causing pain along the brachial plex us distribution. He was poorly compliant with 100% of medications and now his blood pressure is bett er controlled on multiple antihypertensives. We will, if need be, have hold parameters and additiona l medications including clonidine 0.1 mg for systolic blood pressure greater than 170 may be consider ed. Rehab Specific Plan: Brielle will have physical and occupational therapy to help him with his transfe rs from his bed to a chair, wheelchair, toilet and shower in and out, and to do upper and lower body dressing and donning-doffing footwear. Therapy will help with him performing activities of daily eloise ing, and if need be, he will have Speech again to help with safety awareness, cognitive issues, and a ny issues that may develop such as swallowing issues and dysarthria or any other issues such as cogni tive problems. Mr. Ybarra has a good understanding of the process of admission to the inpatient rehabilitation facili , how he will benefit from physical and occupational therapy. He will have 24 hours a day, 7 days a week skilled rehabilitation nursing, daily physician evaluation and management, and healthcare social worker evaluation and management for discharge planning, home equipment, and continuing therapy and followi ng up with physicians. If need be, additional help from the hospitalist service will be sought. 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 He is left handed and that is a dominant side. It may be very difficult for him to return to job or return to home and function independently and will h ave to work hard on using the right hand for many of his basic activities that may prolong his stay. May require admission to skilled before going home. Length Of Stay: About 2 to 3 weeks. Disposition: Back home with family and continue therapy. The patient does request outpatient physic al therapy if he is doing well and that will actually benefit him more depending on how well he is do ing. Prognosis: Good. Code Status: Full code. Rehab Specific Goals: 1.Become independent with upper and lower body dressing, donning-doffing footwear. 2.Independently transfer from bed to chair, to toilet, to shower. 3.Independently perform toilet and showering. 4.Independently mobilize wheelchair 250 feet. 5.Independently mobilize a rolling walker 250 feet. 6.Independently go up and down 10 steps with bilateral handrails. 7.Independently perform all cognitive functioning. The above goals were reviewed with Brielle and he is in agreement. By signing this document, I acknowledge I personally performed a full physical examination on Mr. Elvis Ybarra no later than 24 hours after his admission to the inpatient rehabilitation facility and det ermined he is able to tolerate the above course of treatment at an intensive level for a reasonable p eriod of time. A detailed individualized plan of care for him will be completed by hospital day 4 ba paul on the preadmission screen, history and physical, and therapy evaluations. GRADY/CARMINE Voice ID: [id number]
[2024-07-02] MEDS: LIDOCAINE 4% PATCH TOP SCH (08:30)
--- NOTE | 2024-07-02 22:47 | PN ---
Date of Progress Note: 07/02/2024 Time Of Service: 1:55 p.m. Subjective: Mr. Ybarra is sitting in a chair looking out the window. He is feeling happy about his t herapy so far. 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 He can move the left shoulder better. The left leg is also mov ing a little bit better. No new complaints. Objective: No fevers, chills, nausea, vomiting, myalgias, arthralgias, rash, or other complaints. Physical Examination: Vital Signs: Blood pressure 153/70, pulse of 60, respiratory rate 16, temperature 97.6, oxygen satur ation 97%. General: Mr. Ybarra again is sitting in a chair beside bed. HEENT: He is normocephalic, atraumatic. Sclerae anicteric. Oropharynx pink, moist. Neck: Supple. Chest: Clear. Neuro: His left upper extremity is showing slight improvement proximally more than distally in stren gths and sensation return. Laboratory Studies: White blood cell count 9.7, hemoglobin 13.6, platelets 209. Sodium 138, potassi um 4.1, chloride 109, carbon dioxide is 27, BUN 18, creatinine 0.83, albumin 2.8, prealbumin 14.4, ma gnesium 2.3, calcium 8.7. X-ray/imaging: No new x-rays or imaging. Medications: Tylenol 1000 mg every 8 hours as needed, Norvasc 10 mg daily, Eliquis 2.5 mg twice sanford y, Artificial Tears 1 drop 4 times daily in each eye, aspirin 81 mg daily, Lipitor 40 mg at bedtime f or stool softening. Does have Dulcolax Cardura for heart rate and blood pressure control. He has A presoline for blood pressure control, lidocaine patch to the left shoulder for pain, magnesium oxide for muscle spasm, melatonin for insomnia, Senokot-S for constipation. He is receiving nasal spray sa line to help with that dry nose. Progress Made With Physical And Occupational Therapy: Today with physical therapy, he was able to do zdvosm-my-wzz transfers with standby assistance, multiple htm-bd-grqhh transfers with contact guard assistance, using a quad cane covered 150 feet, 125 feet, and 50 feet with contact guard assistance. Emphasis placed on upright posturing and how to place a quad cane properly. With his occupational t herapy, he did have some pain in the left shoulder, repositioning did help, tolerated scapular mobili zation for range of motion of left upper extremity and did so pretty well. Assessment: Mr. Ybarra is a 68-year-old patient in the rehabilitation unit with right pontine infarct with left-sided paresis upper and lower extremity, which is improving slightly. He still has decrea sed mobility, decreased physical functioning, has hypotension, muscle spasms, dyslipidemia, dry eyes, stroke, and DVT risk. Plan: He will continue with physical and occupational therapy 3 hours a day, 5 of 7 days. We will c ontinue with comorbid condition medications which have been listed. He is actually doing well so far , but still has a long way to go, to be able to become independent and return to his job which he wou ld like to do. He does mostly sit for his job and does not have to manipulate lots of different obje cts, left side dominant, and that would have to return for him to be able to function independently. GRADY/CARMINE Voice ID: [id number] Report ID: [id number]
[2024-07-03 01:43] VITALS: BMI 32.6
--- NOTE | 2024-07-03 14:25 | P.RH.PN ---
Estimated Length of Stay: 13 Expected Discharge Date: 07/11/24 Discharge Disposition Plan: Home Family Support: Yes Retirement Goal: Mobility, Transfers, Self Care Vital Signs: Last Vital Signs Temp 97.9 F 07/03/24 08:00 Pulse 70 07/03/24 08:50 Resp 14 07/03/24 08:00 BP 172/77 H 07/03/24 08:50 Pulse Ox 95 07/03/24 08:00 Laboratory: Laboratory Last Values WBC 9.70 thou/uL (4.3-10.9) 07/01/24 04:51 RBC 4.86 M/uL (4.33-5.43) 07/01/24 04:51 Hgb 13.6 g/dL (13.6-17.9) 07/01/24 04:51 Hct 41.2 % (39.6-49.0) 07/01/24 04:51 MCV 84.8 fL (80-100) 07/01/24 04:51 MCH 27.9 pg (27.0-35.0) 07/01/24 04:51 MCHC 32.9 g/dL (32.0-36.0) 07/01/24 04:51 RDW 15.2 % (12.1-15.2) 07/01/24 04:51 Plt Count 209 thou/uL (152-406) 07/01/24 04:51 MPV 8.7 fL (7.6-11.3) 07/01/24 04:51 Neutrophils % 71.7 % (41.7-73.7) 07/01/24 04:51 Lymphocytes % 13.4 % (15.3-44.8) L 07/01/24 04:51 Monocytes % 11.1 % (3.3-12.3) 07/01/24 04:51 Eosinophils % 3.1 % (0-4.4) 07/01/24 04:51 Basophils % 0.7 % (0-1.3) 07/01/24 04:51 Absolute Neutrophils 6.9 K/uL (1.8-8.0) 07/01/24 04:51 Absolute Lymphocytes 1.3 K/uL (0.7-4.9) 07/01/24 04:51 Absolute Monocytes 1.1 K/uL (0.1-1.3) 07/01/24 04:51 Absolute Eosinophils 0.3 K/uL (0-0.5) 07/01/24 04:51 Absolute Basophils 0.1 K/uL (0-0.5) 07/01/24 04:51 Sodium 138 mEq/L (136-145) 07/01/24 04:51 Potassium 4.1 mEq/L (3.5-5.1) 07/01/24 04:51 Chloride 109 mEq/L (98-107) H 07/01/24 04:51 Carbon Dioxide 27 mEq/L (21-32) 07/01/24 04:51 Anion Gap 6.1 mEq/L (5.0-15.0) 07/01/24 04:51 BUN 18 mg/dL (7-18) 07/01/24 04:51 Creatinine 0.83 mg/dL (0.70-1.30) 07/01/24 04:51 Est GFR (CKD-EPI) 95 ml/min (=/>90) 07/01/24 04:51 Glucose 103 mg/dL (74-106) 07/01/24 04:51 Calcium 8.7 mg/dL (8.5-10.1) 07/01/24 04:51 Magnesium 2.3 mg/dL (1.6-2.4) 07/01/24 04:51 Albumin 2.8 g/dL (3.4-5.0) L 07/01/24 04:51 Prealbumin 14.4 mg/dL (20-40) L 07/01/24 04:51 Urine Color Light-yellow (Yellow) 07/01/24 00:40 Urine Clarity Clear (Clear) 07/01/24 00:40 Urine pH 5.5 (5.0-7.0) 07/01/24 00:40 Ur Specific [place] 1.009 (1.005-1.030) 07/01/24 00:40 Glucose (UA)(Auto) Negative (Negative) 07/01/24 00:40 Urine Ketones Negative (Negative) 07/01/24 00:40 Urine Blood Negative (Negative) 07/01/24 00:40 Urine Nitrite Negative (Negative) 07/01/24 00:40 Urine Bilirubin Negative (Negative) 07/01/24 00:40 Urine Urobilinogen Normal (Normal) 07/01/24 00:40 Ur Leukocyte Esterase Negative [place]/uL (Negative) 07/01/24 00:40 Urine RBC <5 /HPF (None Seen) 07/01/24 00:40 Urine WBC <5 /HPF (<5) 07/01/24 00:40 Ur Squamous Epith Cells <5 /HPF (None Seen) 07/01/24 00:40 Urine Bacteria None seen /HPF (<20) 07/01/24 00:40 Urine Culture Reflexed Not needed 07/01/24 00:40 Urine Total Protein Negative (Negative) 07/01/24 00:40 Weight: 241 lb Wound Present: No Closed Surgical Incision Present: No Negative Pressure Wound Therapy Present: No Physician Update: Bed mobility SBA, STS CGA, RW 150' CGA, up and down 15 steps with CGA. Labs reviewed and are stable. Impulsive with therapists but motivated. 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 Please see the Rehabilitation Signature page for all necessary signatures.
[2024-07-03] MEDS: APIXABAN 2.5 MG TABLET PO SCH (19:49)
[2024-07-03] MEDS: DOXAZOSIN 2 MG TAB PO SCH (19:49)
--- NOTE | 2024-07-06 21:02 | PN ---
Date of Progress Note: 07/06/2024 Time Of Service: 1:55 p.m. Subjective: The patient is sitting in a chair beside the bed. He is very happy so far with therapy, although he would like his strength in the left hand to be much better. Still has no effective func tional use of the left side from stroke. Proximally, he is feeling stronger in the left upper extrem ity. No new complaints. Review of Systems: No fevers, chills, nausea, vomiting, myalgias, arthralgias. No rash. Physical Examination: Vital Signs: Blood pressure 142/68, pulse 62, respiratory rate 18, temperature 97.5, oxygen saturati on 95%. General: Mr. Ybarra again is sitting comfortably. HEENT: He is normocephalic, atraumatic. Sclerae are anicteric. Oropharynx pink and moist. Neck: Supple. Chest: Clear. Neuro: He has significant weakness in the left upper extremity more distally than proximally. Left lower extremity is stronger. Left face, good movement, although slight decrease in the nasolabial fo ld. Laboratory Studies: No new laboratory studies. X-ray/imaging: No new x-rays or imaging. Medications: Medications have been reviewed and are unchanged. Progress Made With Physical And Occupational Therapy: Today with physical therapy, he did perform mu ltiple [id number] transfers with standby assistance. He ambulated with a quad cane 250 feet twice with contact guard assistance, was able to go up and down 15 steps with his right-sided handrail with contact guard assistance. With occupational therapy, supervision for rrh-wq-kqawo transfers and tereza wer with grab bars being used. Supervision for bathing. Impulsivity was there, had to be assisted d uring some points. Required minimum assistance for donning the sock on the left foot. Assessment And Plan: Mr. Ybarra is a 68-year-old patient with right hemispheric stroke with dense par esis of left upper extremity, less so in the left lower extremity and his speech does have some impul sivity, some incoordination and poor balance. He does have comorbidities, hypertension, dyslipidemia , insomnia. He does have dry eyes. He has hypertension. Plan: Continue with physical and occupational therapy 3 hours a day, 5 of 7 days. Continue Eliquis for DVT prophylaxis, Norvasc for blood pressure management, Tylenol for pain. He has Lipitor for dys lipidemia, Cardura for heart rate and cardiac improvement. Magnesium oxide for muscle spasms, melato yvonne for insomnia, Senokot for constipation, and is on Visine eye drops for dry eyes and again continue all therapy as noted. Plan will be for him to disch arge and to be able to continue therapy. At this point, he has transportation via outpatient therapy . GRADY/CARMINE Voice ID: [id number] Report ID: [id number]
--- NOTE | 2024-07-08 19:46 | PN ---
Date of Progress Note: 07/08/2024 Time Of Service: 1:45 p.m. Subjective: Mr. Ybarra is happy about his therapy, although the left-sided weakness from his right po ntine stroke is not appreciably improving in the upper extremity proximally, though he is able to mov e more distally. 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 No new complaints. Review of Systems: No fevers, chills, nausea, vomiting, myalgias, arthralgias. No other complaints. Physical Examination: Vital Signs: Blood pressure 127/59, pulse of 56, respiratory rate of 18, temperature 97.7, oxygen sa turation 95%. General: Mr. Ybarra again is sitting in a chair in the gym. HEENT: He appears normocephalic, atraumatic. Sclerae anicteric. Oropharynx pink, moist. Neck: Supple. Chest: Clear. Heart: Regular. Neurological: He has significant paresis of left upper extremity more distally around 2/5 and proxim ally around 3/5. Left lower extremity around 3 to 4/5. Decreased sensation in left compared to the right side. Right upper and lower extremities, no deficits. Laboratory Studies: He has no new laboratory studies. X-ray/imaging: No new x-rays or imaging. Medications: Medications have been reviewed and are continued unchanged. Progress Made With Physical And Occupational Therapy: Today with physical therapy, he ambulated 575 feet with a quad cane with standby assistance, multiple qqs-bw-zfijv transfers done with standby assi stance. Also, requires supervision for verbal cues to slow down. Did have some left shoulder flexio n-extension, range of motion, strengthening by sliding the arm on the table with a towel, did that ba ck and forth and of course that is his left side. Assessment And Plan: Mr. Ybarra is a 68-year-old patient in rehabilitation unit with a right pontine infarct causing dense left extremity paresis with some bnoi-vc-rhimzhvw improvement, left lower extre mity less affected, improving slowly though. He has comorbid decreased mobility, decreased physical functioning, constipation, insomnia, muscle spasms, hypertension, dyslipidemia. Plan: We will continue with physical and occupational therapy 3 hours a day, 5 of 7 days. Continue with his list of comorbid condition medications. He does have DVT prophylaxis on board with the Eliq uis as noted. Management for his hypertension, dyslipidemia, constipation, insomnia are all on board . GRADY/CARMINE Voice ID: [id number] Report ID: [id number]
[2024-07-09 06:22] LABS: Absolute Basophils 0.1 K/uL (0-0.5); Absolute Eosinophils 0.3 K/uL (0-0.5); Absolute Lymphocytes (CBC) 1.2 K/uL (0.7-4.9); Absolute Monocytes 0.8 K/uL (0.1-1.3); Absolute Neutrophil 5.4 K/uL (1.8-8.0); Basophils % 0.7 % (0-1.3); Eosinophils % 3.7 % (0-4.4); Hematocrit 38.7 % (39.6-49.0); MCH 27.9 pg (27.0-35.0); MCHC 33.5 g/dL (32.0-36.0); MCV 83.2 fL (80-100); MPV 9.6 fL (7.6-11.3); Monocytes % 10.2 % (3.3-12.3); Neutrophils % 69.4 % (41.7-73.7); Platelets 258 thou/uL (152-406); RBC Red Blood Cell Count 4.66 M/uL (4.33-5.43); Red Cell Distribution Width 14.4 % (12.1-15.2)
[2024-07-09 06:41] LABS: Albumin 2.7 g/dL (3.4-5.0); Magnesium 2.4 mg/dL (1.6-2.4); Prealbumin 17.6 mg/dL (20-40)
[2024-07-09] MEDS: LIDOCAINE 4% PATCH TOP SCH (08:54)
--- NOTE | 2024-07-09 23:41 | PN ---
Date of Progress Note: 07/09/2024 Time Of Service: 1:45 p.m. Subjective: Mr. Ybarra is in the gym. He is moving the left arm somewhat better, but still significa ntly weak, but he is able to come towards his face and do some pincer moves in terms of the thumb, in dex, and middle fingers. He is still wanting to be able to do more functional activities with the le ft hand, which is the dominant side. Review of Systems: No fevers, chills, nausea, vomiting, myalgias, arthralgias. No rash. No other complaints. Physical Examination: Vital Signs: Blood pressure 159/77, pulse 65, respiratory rate 18, temperature 97.2, oxygen saturati on 95%. General: Again, Mr. Ybarra is in the gym doing therapy sessions with the therapist. Extremities: His left upper extremity still significantly weak around 3/5 proximally, around 2 to 3/ 5 distally. Left lower extremity is stronger and he has good articulation. No significant decrease in the left nasolabial fold, just mild. Laboratory Studies: White blood cell count 7.8, hemoglobin 13, platelets 258. Sodium 141, potassium 4.0, carbon dioxide 29, BUN 15, creatinine 0.82, glucose 101, calcium 8.7, magnesium 2.4, albumin 2. 7, prealbumin 17.6. X-ray/imaging: No new x-rays or imaging. Medications: His medications have been reviewed and are continued unchanged except the lidocaine pat ch applied, 2 patches on the right upper extremity. Progress Made With Physical And Occupational Therapy: Today with physical therapy, multiple sit-to-s tand transfers done independently, multiple wxfvm-es-[id number] transfers independently. Ambulated with a quad cane twice 500 feet with standby assistance. Emphasis placed on his step through pattern. He ascended and descended 15 steps with bilateral handrails independently. With occupational therapy, i ndependent with toilet transfers, multiple transfers on bedroom and gym continued. Left upper extrem ity shoulder flexion and elbow flexion-extension activities did very well. Assessment: Mr. Ybarra is a 68-year-old patient in rehabilitation unit with right pontine nonhemorrha gic infarct, who has paresis of his dominant left upper extremity more than lower extremity. Mild dy sarthria and dysphagia. He has decreased mobility, decreased physical functioning, hypertension, ins omnia, constipation, dyslipidemia, dry eyes. Plan: 1.He will continue with physical and occupational therapy 3 hours a day, 5 of 7 days. 2.Comorbid condition medications which have been listed are being continued. The patient will likel y benefit from aggressive therapy for a more extended period of time than is allowed in inpatient red abilitation. He would like to be able to return to work. It is at this point very difficult for him to do manipulation of objects with the left hand which is his dominant hand and he is doing his best to use the right side while he regains function slowly on the left. GRADY/CARMINE Voice ID: [id number] Report ID: [id number]
--- NOTE | 2024-07-10 15:01 | P.RH.PN ---
Estimated Length of Stay: 13 Expected Discharge Date: 07/11/24 Discharge Disposition Plan: Home Family Support: Yes Long-Term Goal: Mobility, Transfers, Self Care Vital Signs: Last Vital Signs Temp 97.5 F 07/10/24 08:00 Pulse 53 07/10/24 08:00 Resp 14 07/10/24 08:00 BP 173/87 H 07/10/24 08:00 Pulse Ox 97 07/10/24 08:00 Laboratory: Laboratory Last Values WBC 7.80 thou/uL (4.3-10.9) 07/09/24 05:11 RBC 4.66 M/uL (4.33-5.43) 07/09/24 05:11 Hgb 13.0 g/dL (13.6-17.9) L 07/09/24 05:11 Hct 38.7 % (39.6-49.0) L 07/09/24 05:11 MCV 83.2 fL (80-100) 07/09/24 05:11 MCH 27.9 pg (27.0-35.0) 07/09/24 05:11 MCHC 33.5 g/dL (32.0-36.0) 07/09/24 05:11 RDW 14.4 % (12.1-15.2) 07/09/24 05:11 Plt Count 258 thou/uL (152-406) 07/09/24 05:11 MPV 9.6 fL (7.6-11.3) 07/09/24 05:11 Neutrophils % 69.4 % (41.7-73.7) 07/09/24 05:11 Lymphocytes % 16.0 % (15.3-44.8) 07/09/24 05:11 Monocytes % 10.2 % (3.3-12.3) 07/09/24 05:11 Eosinophils % 3.7 % (0-4.4) 07/09/24 05:11 Basophils % 0.7 % (0-1.3) 07/09/24 05:11 Absolute Neutrophils 5.4 K/uL (1.8-8.0) 07/09/24 05:11 Absolute Lymphocytes 1.2 K/uL (0.7-4.9) 07/09/24 05:11 Absolute Monocytes 0.8 K/uL (0.1-1.3) 07/09/24 05:11 Absolute Eosinophils 0.3 K/uL (0-0.5) 07/09/24 05:11 Absolute Basophils 0.1 K/uL (0-0.5) 07/09/24 05:11 Sodium 141 mEq/L (136-145) 07/09/24 05:11 Potassium 4.0 mEq/L (3.5-5.1) 07/09/24 05:11 Chloride 108 mEq/L (98-107) H 07/09/24 05:11 Carbon Dioxide 29 mEq/L (21-32) 07/09/24 05:11 Anion Gap 8.0 mEq/L (5.0-15.0) 07/09/24 05:11 BUN 15 mg/dL (7-18) 07/09/24 05:11 Creatinine 0.82 mg/dL (0.70-1.30) 07/09/24 05:11 Est GFR (CKD-EPI) 95 ml/min (=/>90) 07/09/24 05:11 Glucose 101 mg/dL (74-106) 07/09/24 05:11 Calcium 8.7 mg/dL (8.5-10.1) 07/09/24 05:11 Magnesium 2.4 mg/dL (1.6-2.4) 07/09/24 05:11 Albumin 2.7 g/dL (3.4-5.0) L 07/09/24 05:11 Prealbumin 17.6 mg/dL (20-40) L 07/09/24 05:11 Urine Color Light-yellow (Yellow) 07/01/24 00:40 Urine Clarity Clear (Clear) 07/01/24 00:40 Urine pH 5.5 (5.0-7.0) 07/01/24 00:40 Ur Specific [place] 1.009 (1.005-1.030) 07/01/24 00:40 Glucose (UA)(Auto) Negative (Negative) 07/01/24 00:40 Urine Ketones Negative (Negative) 07/01/24 00:40 Urine Blood Negative (Negative) 07/01/24 00:40 Urine Nitrite Negative (Negative) 07/01/24 00:40 Urine Bilirubin Negative (Negative) 07/01/24 00:40 Urine Urobilinogen Normal (Normal) 07/01/24 00:40 Ur Leukocyte Esterase Negative [place]/uL (Negative) 07/01/24 00:40 Urine RBC <5 /HPF (None Seen) 07/01/24 00:40 Urine WBC <5 /HPF (<5) 07/01/24 00:40 Ur Squamous Epith Cells <5 /HPF (None Seen) 07/01/24 00:40 Urine Bacteria None seen /HPF (<20) 07/01/24 00:40 Urine Culture Reflexed Not needed 07/01/24 00:40 Urine Total Protein Negative (Negative) 07/01/24 00:40 Weight: 241 lb Wound Present: No Closed Surgical Incision Present: No Negative Pressure Wound Therapy Present: No Physician Update: Independent with bed mobility, all transfers, walking with narrow based quad cane 250' independently. Met all OT goals and independent. He is impulsive and at his fall risk. 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 Please see the Rehabilitation Signature page for all necessary signatures.
[2024-07-11 07:38] VITALS: BP 167/75; TEMP 97.8
--- NOTE | 2024-07-21 12:48 | EKG ---
Test Date: 2024-07-10 Test Time: 21:36:57 Hosiery Looper: JULITA MEASUREMENT RESULTS: Intervals: Rate: 47 DE: 272 QRSD: 148 QT: 472 QTc: 417 [place]: P: 90 DE: 272 QRS: 8 T: 77 INTERPRETIVE STATEMENTS: Poor data quality, interpretation may be adversely affected Marked sinus bradycardia with 1st degree AV block with premature atrial complexes with aberrant conduction with ventricular esc Right bundle branch block Abnormal ECG Compared to ECG 06/21/2024 08:57:21 Aberrant conduction of supraventricular beat(s) now present Electronically Signed On 07-21-24 12:27:20 INFECTION CONTROL PREVENTIONIST by Kosta Andersen
== END 2024-07-11 09:40 | disposition home health service (06) | DRG 57 ==
LOC: 5TH 20:35
PROVIDERS: ADMIT Psychiatry & Neurology Neurology with Special Qualifications in Child Neurology; ATTEND Psychiatry & Neurology Neurology with Special Qualifications in Child Neurology
DX: I69.352 Hemiplegia and hemiparesis following cerebral infarction affecting left dominant side (principal); I69.322 Dysarthria following cerebral infarction; I69.391 Dysphagia following cerebral infarction; I10 Essential (primary) hypertension; E78.5 Hyperlipidemia, unspecified; R00.1 Bradycardia, unspecified; R25.2 Cramp and spasm; I95.9 Hypotension, unspecified; K59.00 Constipation, unspecified; G47.00 Insomnia, unspecified
CPT/HCPCS: 36415; 80048; 81001; 82040; 83735; 84134; 85025; 87086; 87088; 93005; 97110; 97112; 97116; 97124; 97140; 97163; 97165; 97530; 97542; J2003